=== PATIENT | male | born 2000 | race Caucasian/White ===

== ENCOUNTER 2022-12-14 01:26 | Emergency (ER) | payer SELFPAY ==
[~2022-12-14] VITALS: Ht 175.3 cm; Wt 96.6 kg
--- NOTE | 2022-12-14 01:44 | NUR ---
Ambulated to room 1-B, awaiting MD exam, no s/s of any distress noted. Informed of plan of care at this time.
--- NOTE | 2022-12-14 02:49 | NUR ---
Dr. García evaluated patient at bedside. MSE in progress.
--- NOTE | 2022-12-14 02:52 | NUR ---
Strep swab sent to lab
--- NOTE | 2022-12-14 04:24 | NUR ---
Patient discharged to home in stable condition. Written and verbal after care instructions given. Patient verbalizes understanding of instructions. Stressed follow up or return to ER for worsening s/s.
[2022-12-14 04:26] VITALS: BP 140/84
== END 2022-12-14 04:26 | disposition home or self-care (01) ==
LOC: ER 01:41
DX: J02.9 Acute pharyngitis, unspecified (principal)
CPT/HCPCS: 86403; A4663